=== PATIENT | male | born 1965 | race Native Hawaiian/Other Pacific Islander ===

== ENCOUNTER → 2017-02-02 13:03 | Outpatient (CLI) | payer OTHER | END | disposition home or self-care (01) | LOC: AMB 13:03 | DX: Z04.1 Encounter for examination and observation following transport accident (principal) ==

== ENCOUNTER 2018-10-20 09:32 | Outpatient (CLI) | payer BC ==
[2018-10-20 10:24] LABS: PLATELET COUNT 438 K/uL (142-355)
== END 2018-10-20 23:50 | disposition home or self-care (01) ==
LOC: LAB 09:32
PROVIDERS: Internal Medicine Gastroenterology
DX: K62.6 Ulcer of anus and rectum (principal)
CPT/HCPCS: 36415; 85027